=== PATIENT | male | born 1945 | race Caucasian/White ===

== ENCOUNTER → 2023-09-18 13:35 | Outpatient (REF) | payer OTHER, SELFPAY | LOC: DHCBC MAIN 13:35 | PROVIDERS: ATTENDING PHYSICIAN Internal Medicine; FAMILY PHYSICIAN Nurse Practitioner Adult Health | DX: I25.10 Atherosclerotic heart disease of native coronary artery without angina pectoris (principal); I25.5 Ischemic cardiomyopathy; I21.02 ST elevation (STEMI) myocardial infarction involving left anterior descending coronary artery | CPT/HCPCS: 93306 ==

== ENCOUNTER → 2023-12-02 08:05 | Outpatient (REF) | payer OTHER, SELFPAY ==
[2023-12-02 10:00] LABS: Blood Urea Nitrogen 20 mg/dl (9-20)
== END ==
LOC: REG 08:05
PROVIDERS: ATTENDING PHYSICIAN Radiology Radiation Oncology; FAMILY PHYSICIAN Nurse Practitioner Adult Health
DX: C41.3 Malignant neoplasm of ribs, sternum and clavicle (principal)
CPT/HCPCS: 36415; 82565; 84520

== ENCOUNTER → 2023-12-10 12:38 | Outpatient (REF) | payer OTHER, SELFPAY | LOC: RAD 12:38 | PROVIDERS: ATTENDING PHYSICIAN Radiology Radiation Oncology; FAMILY PHYSICIAN Nurse Practitioner Adult Health | DX: C41.3 Malignant neoplasm of ribs, sternum and clavicle (principal) | CPT/HCPCS: 71260; Q9967 ==

== ENCOUNTER → 2024-04-15 09:46 | Outpatient (REF) | payer OTHER, SELFPAY | LOC: RAD 09:46 | PROVIDERS: ATTENDING PHYSICIAN Radiology Radiation Oncology; FAMILY PHYSICIAN Nurse Practitioner Adult Health | DX: C41.3 Malignant neoplasm of ribs, sternum and clavicle (principal) | CPT/HCPCS: 71260; Q9967 ==

== ENCOUNTER → 2024-09-28 08:12 | Outpatient (REF) | payer OTHER, SELFPAY ==
[2024-09-28 09:57] LABS: Blood Urea Nitrogen 20 mg/dl (9-20)
== END ==
LOC: REG 08:12
PROVIDERS: ATTENDING PHYSICIAN Radiology Radiation Oncology; FAMILY PHYSICIAN Nurse Practitioner Adult Health
DX: C41.3 Malignant neoplasm of ribs, sternum and clavicle (principal)
CPT/HCPCS: 36415; 82565; 84520

== ENCOUNTER → 2024-10-05 07:31 | Outpatient (REF) | payer OTHER, SELFPAY | LOC: RAD 07:31 | PROVIDERS: ATTENDING PHYSICIAN Radiology Radiation Oncology; FAMILY PHYSICIAN Nurse Practitioner Adult Health | DX: C41.3 Malignant neoplasm of ribs, sternum and clavicle (principal) | CPT/HCPCS: 71260; Q9967 ==

== ENCOUNTER → 2024-10-22 15:04 | Outpatient (REF) | payer OTHER, SELFPAY | LOC: MRI 3T 15:04 | PROVIDERS: ATTENDING PHYSICIAN Specialist; FAMILY PHYSICIAN Nurse Practitioner Adult Health | DX: N40.1 Benign prostatic hyperplasia with lower urinary tract symptoms (principal); R97.20 Elevated prostate specific antigen [PSA] | CPT/HCPCS: 72197; A9575 ==

== ENCOUNTER → 2025-04-26 07:51 | Outpatient (REF) | payer OTHER, SELFPAY ==
[2025-04-26 08:55] LABS: Blood Urea Nitrogen 23 mg/dl (9-20)
== END ==
LOC: REG 07:51
PROVIDERS: ATTENDING PHYSICIAN Radiology Radiation Oncology
DX: C49.9 Malignant neoplasm of connective and soft tissue, unspecified (principal)
CPT/HCPCS: 36415; 82565; 84520

== ENCOUNTER → 2025-05-05 08:50 | Outpatient (REF) | payer OTHER, SELFPAY | LOC: RAD 08:50 | PROVIDERS: ATTENDING PHYSICIAN Radiology Radiation Oncology; FAMILY PHYSICIAN Nurse Practitioner Adult Health | DX: C41.9 Malignant neoplasm of bone and articular cartilage, unspecified (principal) | CPT/HCPCS: 71260; Q9967 ==

== ENCOUNTER → 2025-05-14 09:22 | Outpatient (REF) | payer OTHER, SELFPAY | LOC: HWRAD 09:22 | PROVIDERS: ATTENDING PHYSICIAN Nurse Practitioner Adult Health | DX: R63.4 Abnormal weight loss (principal); R54 Age-related physical debility | CPT/HCPCS: 74176 ==

== ENCOUNTER 2025-06-15 09:18 | Outpatient (RCR) | payer OTHER, SELFPAY | END 2025-06-15 23:59 | disposition home or self-care (01) | LOC: RPT 09:18 | PROVIDERS: ATTENDING PHYSICIAN Nurse Practitioner Adult Health | DX: R26.2 Difficulty in walking, not elsewhere classified (principal); Z73.6 Limitation of activities due to disability; G20.A1 Parkinson's disease without dyskinesia, without mention of fluctuations; R26.89 Other abnormalities of gait and mobility; R29.6 Repeated falls | CPT/HCPCS: 97110; 97112; 97163; 97530 ==

== ENCOUNTER 2025-06-24 13:24 | Outpatient (RCR) | payer OTHER, SELFPAY | END 2025-07-09 09:23 | disposition home or self-care (01) | LOC: RPT 13:24 | PROVIDERS: ATTENDING PHYSICIAN Nurse Practitioner Adult Health | DX: R26.2 Difficulty in walking, not elsewhere classified (principal); Z73.6 Limitation of activities due to disability; G20.A1 Parkinson's disease without dyskinesia, without mention of fluctuations; R26.89 Other abnormalities of gait and mobility; R29.6 Repeated falls | CPT/HCPCS: 97110; 97112; 97116 ==

== ENCOUNTER 2025-08-17 09:25 | Outpatient (RCR) | payer OTHER, SELFPAY | END 2025-08-17 23:59 | disposition home or self-care (01) | LOC: RPT 09:25 | PROVIDERS: ATTENDING PHYSICIAN Nurse Practitioner Adult Health | DX: G20.A1 Parkinson's disease without dyskinesia, without mention of fluctuations (principal); G20.A2 Parkinson's disease without dyskinesia, with fluctuations (principal); Z73.6 Limitation of activities due to disability; R26.89 Other abnormalities of gait and mobility; R29.6 Repeated falls | CPT/HCPCS: 97110; 97112; 97162; 97166; 97530; 97535 ==